=== PATIENT | male | born 1955 | race Caucasian/White ===

== ENCOUNTER 2017-01-15 12:24 | Emergency (ER) | payer OTHER ==
[~2017-01-15] VITALS: Ht 152.4 cm; Wt 92.1 kg
[2017-01-15 12:26] VITALS: BP 180/89
[2017-01-15] MEDS ORDERED: LIDOCAINE 1%, 20ML ONE (12:43)
[2017-01-15] MEDS ORDERED: LIDOCAINE 1%, 20ML SQ ONE (13:00)
[2017-01-15] MEDS ORDERED: ROSU10TA PO (13:10)
== END 2017-01-15 13:43 | disposition home or self-care (01) ==
LOC: ED 13:37
DX: S61.211A Laceration without foreign body of left index finger without damage to nail, initial encounter (principal); S62.333A Displaced fracture of neck of third metacarpal bone, left hand, initial encounter for closed fracture; W25.XXXA Contact with sharp glass, initial encounter; Y93.89 Activity, other specified; Y92.89 Other specified places as the place of occurrence of the external cause; Y99.8 Other external cause status
CPT/HCPCS: 12002